=== PATIENT | male | born 1955 | race Caucasian/White ===

== ENCOUNTER 2016-07-24 08:49 | Outpatient (CLI) | payer BC ==
[2016-07-24 12:51] LABS: ALT (SGPT) 231 U/L (0-55); AST (SGOT) 177 U/L (5-34); Alkaline Phosphatase 43 U/L (40-150); Anion Gap 14 mmol/L (10-20); BUN (Urea Nitrogen) 9 mg/dL (8.4-25.7); Bilirubin Negative (Negative); Bilirubin, Total 0.6 mg/dL (0.2-1.2); Blood, Urine Negative (Negative); Calc. Creatinine Clearance 0 mL/min (70-130); Calcium 9.6 mg/dL (7.8-10.44); Carbon Dioxide 26 mmol/L (22-29); Chloride 101 mmol/L (98-107); Estimated GFR-MDRD Greater than 90; Glucose, Urine (Dipstick) Negative (Negative); Ketone, Urine Negative (Negative); LDL Cholesterol, Calculated 131 mg/dL; Nitrite Negative (Negative); Protein, Total 8.4 g/dL (6.0-8.3); Protein, Urine (Dipstick) Negative (Neg-Trace); Urobilinogen 0.2 mg/dL (0.2-1.0)
[2016-07-24 13:32] LABS: Hematocrit 43.3 % (42.0-52.0); Mean Platelet Volume 8.5 fL (7.4-10.4); Neutrophil 40 % (42-75); Red Blood Cell (RBC) Count 4.56 mill/uL (4.70-6.10); White Blood Cell (WBC) Count 3.4 thou/uL (4.8-10.8)
== END 2016-07-24 08:50 ==
LOC: NAVSJIPCSP 08:49
PROVIDERS: ATTEND Internal Medicine
DX: Z00.00 Encounter for general adult medical examination without abnormal findings (principal); Z12.5 Encounter for screening for malignant neoplasm of prostate; B19.20 Unspecified viral hepatitis C without hepatic coma
CPT/HCPCS: 36415; 80053; 80061; 81003; 85025; G0103